=== PATIENT | female | born 1960 | race Asian ===

== ENCOUNTER → 2017-01-07 | Outpatient (CLI) | payer OTHER | LOC: FIMAGING 08:30 | PROVIDERS: ATTEND Obstetrics & Gynecology | DX: Z12.31 Encounter for screening mammogram for malignant neoplasm of breast (principal) | CPT/HCPCS: G0202 ==

== ENCOUNTER → 2018-07-27 | Outpatient (CLI) | payer BC | LOC: FIMAGING 11:00 | PROVIDERS: ATTEND Obstetrics & Gynecology | DX: Z12.31 Encounter for screening mammogram for malignant neoplasm of breast (principal) ==